=== PATIENT | female | born 2000 | race African-American/Black ===

== ENCOUNTER 2025-06-29 09:24 | Emergency (ER) | payer BC, SELFPAY ==
--- NOTE | ~2025-06-29 | XR_ITS ---
[id number] 06/29/2025 10:10 Indication: Radiculopathy Procedure: 5 views cervical spine Comparison: No prior studies for comparison. Findings: Straightening of cervical lordosis. Vertebral body and disc heights are preserved. No preve rtebral soft tissue abnormality. No fracture, subluxation or dislocation. No significant soft tissue abnormality. No foreign bodies. Odontoid process is normal. Impression: 1: No acute abnormality of the cervical spine. Reviewed, dictated and finalized at location B. Impression: 1: No acute abnormality of the cervical spine.
[2025-06-29 09:43] VITALS: BP 129/87; PULSE 82; RESP 18; TEMP 36.6; O2SAT 100
--- NOTE | 2025-06-29 09:43 | ED_ITS ---
HPI - General Adult General Chief complaint: Extremity Injury, Upper Stated complaint: R ARM NUMBNESS X2D Time Seen by Provider: 06/29/25 09:31 History of Present Illness HPI narrative: Patient is a 24-year-old female who presents ER with tingling to the fingertips of her right arm. Began yesterday and worsened today. She is just given to a baby in the last 10 days. She has no known trauma. No wrist pain at this time. She is pumping breast milk. Pain improves with ibuprofen. No complications with her . Related Data Allergies Allergy/AdvReac Type Severity Reaction Status Date / Time No Known Allergies Allergy Verified 06/29/25 09:25 Review of Systems Review of Systems: All systems reviewed & are unremarkable except as noted in HPI and below Constitutional: Constitutional: Reports no additional constitutional complaints Musculoskeletal: Musculoskeletal: Reports no additional musculoskeletal complaints Integumentary/Breasts: Skin/Breast: Reports system reviewed and no additional complaints, except as docu Neurologic: Reports system reviewed and no additional complaints, except as documented PMFSH Past Medical History Medical History (Updated 06/29/25 @ 18:10 by Keny Hernandez MD) Healthy female adult Surgical History Surgical History (Updated 06/29/25 @ 18:10 by Keny Hernandez MD) No pertinent past surgical history Exam Narrative: GENERAL: Well-appearing, well-nourished, and in no acute distress. HEAD: Normocephalic, atraumatic. ENT: Mucous membranes moist. NECK: Supple. Tenderness to the right paraspinal musculature of the trapezius that reproduces her discomfort in her arm and fingers. CHEST: Clear to auscultation. No respiratory distress. HEART: Regular rate and rhythm. Normal peripheral pulses. EXTREMITIES: Normal range of motion. No edema. Negative carpal tunnel compression test on the right side. SKIN: Warm, dry, no rash. NEURO: No focal deficits. Alert and oriented x3. PSYCH: Normal mood and affect. Course Course Emergency Course: Cervical radiculopathy. Discussed use of NSAIDs. Likely positional from holding her baby and attempting breast-feeding Vital Signs Vital signs: Vital Signs Temperature 97.8 F 06/29/25 09:43 Pulse Rate 82 06/29/25 09:43 Respiratory Rate 18 06/29/25 09:43 Blood Pressure 129/87 06/29/25 09:43 Pulse Oximetry 100 06/29/25 09:43 Oxygen Delivery Room Air 06/29/25 09:43 Temperature 97.8 F 06/29/25 09:43 Pulse Rate 82 06/29/25 09:43 Respiratory Rate 18 06/29/25 09:43 Blood Pressure 129/87 06/29/25 09:43 Pulse Oximetry 100 06/29/25 09:43 Oxygen Delivery Room Air 06/29/25 09:43 Medical Decision Making Vital Signs Vital Signs: Vital Signs Temperature 97.8 F 06/29/25 09:43 Pulse Rate 82 06/29/25 09:43 Respiratory Rate 18 06/29/25 09:43 Blood Pressure 129/87 06/29/25 09:43 Pulse Oximetry 100 06/29/25 09:43 Oxygen Delivery Room Air 06/29/25 09:43 Temperature 97.8 F 06/29/25 09:43 Pulse Rate 82 06/29/25 09:43 Respiratory Rate 18 06/29/25 09:43 Blood Pressure 129/87 06/29/25 09:43 Pulse Oximetry 100 06/29/25 09:43 Oxygen Delivery Room Air 06/29/25 09:43 Imaging Data Radiologist's impression: ITS Impressions Cervical Spine X-Ray 06/29/25 10:17 Impression: 1: No acute abnormality of the cervical spine. Discharge Plan Discharge Clinical Impression: Cervical radiculopathy Patient Disposition: Home Condition: Stable Instructions: Cervical Radiculopathy (ED) Additional Instructions: Follow-up with your primary care doctor for further treatment evaluation. Your having a pinched nerve related to inflammation in your neck. Patient Language: Tuval[place] Prescriptions: New ibuprofen 600 mg tablet 600 mg PO TID Qty: 20 0RF Follow-up/Referrals: PHYSICIAN NOT ON STAFF,NONSTAFF [Non-Staff] - 1 Week
[2025-06-29] MEDS: IBUPROFEN 600 MG TABLET PO (10:50)
--- OUTSIDE RECORDS SUMMARY | 2025-06-29 11:08 | XMS_ITS | Clinical Summary ---
Author Organization [facility] Address [address] [place] [address] Care Team Providers Care Detective Name Role Phone None, Provider MD Primary Care Provider Unavaila ble Allergies No known active allergies Medications Vit-DSS-Fe Fum-FA (SE- 19) 29-1 MG Tab 4 Active acetaminophen (TYLENOL) 500 MG tablet Take 2 tablets (1,000 mg total) by mouth every 6 (six) hours as needed for Pain. 30 tablet 5 06/30/20 25 Active ibuprofen (MOTRIN) 600 MG tablet Take 1 tablet (600 mg total) by mouth every 6 (six) hours as needed. 40 tablet 5 06/30/20 25 Active valACYclovir (VALTREX) 500 MG tablet Take 1 tablet (500 mg total) by mouth every 12 (twelve) hours. 06/20/20 25 Discontinu ed(Stop Taking at Discharge) Active Problems Problem Noted Date Diagnosed Date ([facility]) 06/17/2025 Encounters Date Type Department Care Team Description 06/28/2025 Results Follow-Up [facility] [place] [address] Jyothi Huerta MD Pathology-Placenta 06/20/2025 Travel 06/18/2025 12:25 PM CDT Anesthesia Event [facility] [place] [address] Alejandro Cosme CRNA 06/17/2025 7:17 PM CDT - 06/20/2025 2:45 PM CDT Hospital Encounter [facility] [place] [address] Jyothi Huerta MD Cunningham, Mina Marie, MD (MIOL) Discharge Disposition: Home or Self Care (Routine Discharge) 06/17/2025 Travel from Last 3 Months Social History Tobacco Use Types Packs/Day Years Used Date Smoking Tobacco: Never Smokeless Tobacco: Never Tobacco Cessation:Counseling Given: Not Answered Alcohol Use Standard Drinks/Week Comments Never 0 (1 standard drink = 0.6 oz pur e alcohol) [id number] Health Literacy Answer Date Recor ded How often do you need to hav e someone help you when you read instructions, pamphlets, or other written material from your doctor or pharmacy? Never 06/17/2025 [facility] Utilities Answer Date Recorded In the past 12 months has [facility] [employer], or water [employer] threatened to shut off services in your home? No 06/17/2025 Humiliation, Afraid, Rape, and Kick questionnair e Answer Date Recorded Within the last year, have y ou been afraid of your partner or ex-partner? No 06/17/2025 Within the last year, have y ou been humiliated or emotionally abused in other ways by your partner or ex-partner? No Within the last year, have y ou been kicked, hit, slapped, or otherwise physically hurt by your partner or ex-partner? No 06/17/2025 Within the last year, have y ou been raped or forced to have any kind of sexual activity by your partner or ex-partner? No 06/17/2025 Social Connection and Isolat ion Panel [NHANES] Answer Date Recorded In a typical week, how many times do you talk on the phone with family, friends, or neighbors? More than three times a week 06/17/2025 How often do you get togethe r with friends or relatives? More than three times a week 06/17/2025 How often do you attend [facility] or sabianist services? More than 4 times per year 06/17/2025 Do you belong to any clubs o r organizations such as mormonism groups, unions, fraternal or athletic groups, or school groups? No 06/17/2025 How often do you attend meet ings of the clubs or organizations you belong to? More than 4 times per year 06/17/2025 Are you , , di vorced, , never , or living with a partner? Never 06/17/2025 AUDIT-C Answer Date Recorded Q1: How often do you have a drink containing alcohol? Never 06/17/2025 Q2: How many drinks containi ng alcohol do you have on a typical day when you are drinking? Patient does not drink Q3: How often do you have si x or more drinks on one occasion? Never 06/17/2025 Overall Financial Resource Strain (CARDIA) Answe r Date Recorded How hard is it for you to pa y for the very basics like food, housing, medical care, and heating? Not hard at all 06/17/2025 PHQ-2 Answer Date Recorded Patient Health Questionnaire-2 Score 0 06/17/2025 [facility] - Occupational Stress Questionnaire Answer Date Recorded Do you feel stress - tense, restless, nervous, or anxious, or unable to sleep at night because your mind is troubled all the time - these days? Not at all 06/17/2025 Exercise Vital Sign Answer Date Recorde d On average, how many days pe r week do you engage in moderate to strenuous exercise (like a brisk walk)? 2 days 06/17/2025 On average, how many minutes do you engage in exercise at this level? 10 min 06/17/2025 Hunger Vital Sign Answer Date Recorded Within the past 12 months, y ou worried that your food would run out before you got the money to buy more. Never true 06/17/20 25 Within the past 12 months, t he food you bought just didn't last and you didn't have money to get more. Never true 06/17/2025 PRAPARE - Transportation Answer Date Re corded In the past 12 months, has l ack of transportation kept you from medical appointments or from getting medications? No 05/30 In the past 12 months, has l ack of transportation kept you from meetings, work, or from getting things needed for daily living? No 06/17/2025 Housing Stability Vital Sign Answer Guy e Recorded In the last 12 months, was t here a time when you were not able to pay the mortgage or rent on time? No 06/17/2025 In the past 12 months, how m any times have you moved where you were living? 1 06/17/2025 At any time in the past 12 m [facility], were you homeless or living in a senior care (including now)? No 06/17/2025 Depression Answer Date Recor ded Last EPDS Total Score 1 06/20/2025 Last EPDS Self Harm Result Hardly ever 06/20 Comments No Sex and Gender Information Value Date Recorded Sex Assigned at Female 06/17/2025 7:40 PM CDT Legal Sex Female 10:25 AM CDT Gender Identity Female 06/17/2025 7:40 PM CDT Sexual Orientation Straight 06/17/2025 7: 40 PM CDT Last Filed Vital Signs Vital Sign Reading Time Taken Comments Blood Pressure 117/75 06/20/2025 9:15 AM CDT Pulse 74 06/20/2025 9:15 AM CDT Temperature 36.7 C (98.1 F) 06/20/2025 9:15 AM CDT Respiratory Rate 18 06/20/2025 9:15 AM CDT Oxygen Saturation 98% 06/20/2025 9:15 AM CDT Inhaled Oxygen Concentration - - Weight 79.4 kg (175 lb) 06/17/2025 7:31 PM CDT Height 162.6 cm (5' 4) 06/17/2025 7:31 PM CDT Body Mass Index 30.04 06/17/2025 7:31 PM CDT Plan of Treatment Upcoming Encounters Date Type Department Care Team (Late st Contact Info) Description 07/06/2025 8:[address] [facility] [place], [place] [id number] Lexa Ochoa MD [facility] [address] [place], [place] [id number] Health Maintenance Due Date Last Done Comments Cervical Cancer Screening Pap Smear (Age 21 to 29) Every 3 Years 1999 Cervical Cancer Screening 1999 Annual Physical 2002 COVID-19 Vaccine (2 season) 2024 06/26/2023 DTaP, Tdap and Td Vaccines (8 - Td or Tdap) 04/18/2035 04/18/2025, 07/08/2012, 04/15/2005, Additional history exists Pneumococcal Vaccine: Pediatrics (0 to 5 Years) and At-Risk Patients (6 to 49 Years) Aged Out 02/12/2001, 12/07/2000, 09/16/2000 No longer eligible based on patient's age to complete this topic Hepatitis B Vaccines Completed 03/02/2008, 1999, 1999, Additional history exists HPV Vaccines Completed 12/20/2010, 07/01/2010 Meningococcal Vaccine Completed 09/23/2016, 012 Hepatitis C Completed 06/17/2025 Meningococcal B Vaccine Aged Out No l onger eligible based on patient's age to complete this topic RSV Immunizations Under 20 Months Aged Out No longer eligible based on patient's age to complete this topic Procedures Procedure Name Priority Date/Time Associated Diagnosis Comments RHOGAM Routine 06/19/2025 6:1 0 AM CDT COMPREHENSIVE METABOLIC PANEL Routine 06/19/2025 6:10 AM CDT CBC W/DIFF AUTOMATED Routine 06/19/2025 6:10 AM CDT LABOR EPIDURAL Routine 06/18/2025 12:55 PM CDT PATHOLOGY Routine 06/18/2025 12:00 AM CDT TYPE & SCREEN Routine 06/17/2025 9:06 PM CDT DRUG SCREEN RAPID STAT 06/17/2025 8:5 5 PM CDT HC URINALYSIS AUTO W/O MICRO STAT 06/17/2025 8:55 PM CDT SYPHILIS AB (DIAGNOSTIC) WITH CASCADING REFLEX Routine 06/17/2025 8:36 PM CDT HEPATITIS C ANTIBODY Today 06/17/2025 8:36 PM CDT HIV 1 ANTIGEN(S), WITH HIV-1 AND HIV-2 ANTIBODIES Routine 06/17/2025 8:10 PM CDT CBC W/DIFF AUTOMATED STAT 06/17/2025 8:10 PM CDT CULTURE, GRP B STREP Routine 06/08/2025 HIV 1 ANTIGEN(S), WITH HIV-1 AND HIV-2 ANTIBODIES Routine 04/18/2025 CBC W/DIFF AUTOMATED Routine 04/18/2025 SYPHILIS AB (DIAGNOSTIC) WITH CASCADING REFLEX Routine 04/18/2025 from Last 3 Months Results * RHOGAM (06/19/2025 6:10 AM CDT) SCREEN NEGATIVE 06/19/2025 8:11 AM CDT [facility] BB COMMENT NEGATIVE SCREEN INDICATES NO FURTHER TESTING IS NECESSARY. ONE VIAL OF RHOGAM MAY BE GIVEN IF MOTHER IS RH NEGATIVE AND BABY IS RH POSITIVE. 06/19/2025 8:11 AM CDT [facility] 06/19/2025 6:10 AM CDT us Skyler Valenzuela DO BLOOD BANK PRODUCT ORDERABLES Fi nal Result [facility] [address] [place] [address], [place] [phone] * (ABNORMAL) Comprehensive Metabolic Panel (06/19/2025 6:10 AM CDT) [facility] GLUCOSE 121(H) 70 - 99 MG/DL 06/19/2025 7:00 AM CDT [facility] BUN 5(L) 7 - 18 MG/DL 06/19/2025 7:00 AM CDT [facility] CREATININE S/P/B 0.62 0.55 - 1.02 MG/DL 06/19/2025 7:00 AM CDT [facility] SODIUM S/P/B 138 136 - 145 MMOL/L 06/19/2025 7:00 AM T [facility] POTASSIUM S/P/B 3.4(L) 3.5 - 5.1 MMOL/L 06/19/2025 7:00 AM T [facility] CHLORIDE S/P/B 109 97 - 115 MMOL/L 06/19/2025 7:00 AM T [facility] CO2 23.3 21 - 32 MMOL/L 06/19/2025 7:00 AM T [facility] CALCIUM S/P/B 9.2 8.5 - 10.1 MG/DL 06/19/2025 7:00 AM T [facility] BILIRUBIN TOTAL S/P/B 0.5 0.2 - 1.2 MG/DL 06/19/2025 7:00 AM T [facility] Comment: THIS ASSAY IS NOT RECOMMENDED FOR PATIENTS UNDERGOING TREATMENT WITH ELTROMBOPAG DUE TO THE POTENTIAL FOR FALSELY ELEVATED RESULTS. TOTAL PROTEIN S/P/B 6.1(L) 6.4 - 8.2 G/DL 06/19/2025 7:00 AM T [facility] ALBUMIN S/P/B 2.4(L) 3.4 - 5.0 G/DL 06/19/2025 7:00 AM T [facility] AST 15 15 - 37 U/L 06/19/2025 7:00 AM CDT [facility] ALT 16 14 - 55 U/L 06/19/2025 7:00 AM CDT [facility] ALKALINE PHOSPHATASE S/P/B 122 50 - 136 U/L 06/19/2025 7:00 AM CDT [facility] ANION GAP 5.7 2 - 10 MMOL/L 06/19/2025 7:00 AM CDT [facility] BUN CREATININE RATIO 8.0 6 - 26 06/19/2025 7:00 AM CDT [facility] A/G RATIO 0.6(L) 1.0 - 2.0 RATIO 06/19/2025 7:00 AM CDT [facility] GFR ESTIMATE >90 >90 ML/MIN/1.7 3 M2 06/19/2025 7:00 AM CDT [facility] Comment: NOTE: eGFR is not calculated for patients <18 years of age or gender unknown. This is an estimated GFR calculation using the new CKD EPI creatinine equation without race and so does not require a correction factor for race. This estimated GFR should not be used for calculating drug doses. 06/19/2025 6:10 AM CDT Skyler Valenzuela DO LABORATORY Final Result [facility] [address] [place] [address], [place] [phone] * (ABNORMAL) CBC W/DIFF AUTOMATED (06/19/2025 6:10 AM CDT) Only the most recent of3 resultswithin the time period is included. WBC 11.01(H) 4.5 - 11.0 x10'3/uL 06/19/2025 6:46 AM CDT [facility] RBC 3.24(L) 4.20 - 5.40 x10'6/uL 06/19/2025 6:46 AM CDT [facility] HGB 11.2(L) 12.0 - 16.0 G/DL 06/19/2025 6:46 AM CDT [facility] HCT 31.2(L) 38.0 - 48.0 % 06/19/2025 6:46 AM CDT [facility] MCV 96.3 81.0 - 99.0 FL 06/19/2025 6:46 AM CDT [facility] MCH 34.6(H) 27.0 - 31.0 PG 06/19/2025 6:46 AM CDT [facility] MCHC 35.9 32.0 - 36.0 G/DL 06/19/2025 6:46 AM CDT [facility] RDW 12.4 11.5 - 14.5 % 06/19/2025 6:46 AM CDT [facility] PLT 214 130 - 400 x10'3/uL 06/19/2025 6:46 AM CDT [facility] MPV 9.9 9.3 - 12.2 FL 06/19/2025 6:46 AM CDT [facility] DIFFERENTIAL TYPE AUTOMATED DIFFERENTIAL 06/19/2025 6:46 AM CDT [facility] NEUTROPHILS % 77.6 % 06/19/2025 6:46 AM CDT [facility] LYMPHOCYTES % 10.9 % 06/19/2025 6:46 AM CDT [facility] MONOCYTES % 10.3 % 06/19/2025 6:46 AM CDT [facility] EOSINOPHILS 0.5 % 06/19/2025 6:46 AM CDT [facility] BASOPHILS 0.2 % 06/19/2025 6:46 AM CDT [facility] IMMATURE GRANS % 0.5 % 06/19/20 6:46 AM CDT [facility] ABS. NEUTROPHILS 8.54(H) 1.80 - 7.70 x10'3/uL 06/19/2025 6:46 AM CDT [facility] ABS. LYMPHOCYTES 1.20 1.00 - 4.80 x10'3/uL 06/19/2025 6:46 AM CDT [facility] ABS. MONOCYTES 1.13(H) 0.24 - 0.86 x10'3/uL 06/19/2025 6:46 AM CDT [facility] ABS. EOSINOPHILS 0.06 0.04 - 0.36 x10'3/uL 06/19/2025 6:46 AM CDT [facility] ABS. BASOPHILS 0.02 0.01 - 0.08 x10'3/uL 06/19/2025 6:46 AM CDT [facility] ABS. IMMATURE GRANULOCYTES 0.06 0.00 - 0.49 x10'3/uL 06/19/2025 6:46 AM CDT [facility] 06/19/2025 6:10 AM CDT Skyler Valenzuela DO LABORATORY Final Result [facility] [address] [place] [address], * Labor Epidural (06/18/2025 12:55 PM CDT) Narrative Alejandro Cosme CRNA - 06/18/2025 12:55 PM CDT Alejandro Cosme CRNA 06/18/2025 12:56 PM Epidural: Procedure Start: 06/18/2025 12:34 PM Procedure Stop: 06/18/2025 12:46 PM Patient location during procedure: OB Reason for block: procedure for pain and labor epidural Preanesthetic Checklist Completed: patient identified, consent, pre-op evaluation, timeout performed, IV checked, risks and benefits discussed and monitors and equipment checked Procedure Information: Patient position: sitting Prep: site prepped and draped and chlorhexidine Patient monitoring: continuous pulse oximetry, heart rate and non-invasive blood pressure Approach: midline Location: L3-L4 Injection technique: MAGALI saline Placement Location: lumbar Ultrasound-guided Placement: No Needle and Catheter: MRI Compatible: B Mandujano Perifix tray Ref # [id number] Needle type: Tuohy Needle gauge: 17 G Needle length: 3.5 in Needle insertion depth: 6 cm Catheter type: side hole Catheter size: 19 G Catheter at skin depth: 11 cm Test dose: negative and lidocaine 1.5% with epinephrine 1-to-200,000 Needle attempts: 1 Assessment Sensory level: T8 Additional Notes Epidural placed as above, pt tolerated well. Perifix FX Continuous Epidural Anesthesia Tray Ref # [id number] Product code [id number] Expiration 2025-12-30 Alejandro Cosme VAN LOADER [place] ANESTHESIA Final Result * Pathology-Placenta (06/18/2025 12:00 AM CDT) PATHOLOGY [facility] Department of Laboratory Medicine [address] [place] [phone] , extension [id number] Pathology Report Surgical Pathology Report Name: RE PEÑA Specimen #: [id number] Age: 9 2000 (Age: 24) Location: [facility] Sex: F Procedure Date: 06/18/2025 Hospital #: [id number] Date Received: 06/20/2025 Date Reported: 06/21/2025 Provider: JYOTHI HUERTA MD Source: Placenta Clinical History: G1, P1 at 37-1/7-week with intrauterine growth restriction. FINAL DIAGNOSIS: Placenta, third trimester, delivery: - Placental disc (519 g) with no significant villous abnormalities. - membranes with mild chronic chorioamnionitis. - Three-vessel umbilical cord with velamentous insertion and acute phlebitis. Gross Description: Received in formalin, labeled with a patient label and as placenta is a placenta with attached membranes and umbilical cord. The membranes are semitranslucent and exhibit a marginal insertion. The umbilical cord is 17 cm in length with a diameter of 1.2 cm. It exhibits a velamentous insertion 5 cm from the edge of the disc. Several vessels running through the membranes. They appear intact. The cord does not exhibit any areas of stricture or true knots. Sections of the cord reveal 3 vessels. The disc is 519 g and 16 x 15 x 2.5 cm. The surface is bluegray with prominent vasculature. The maternal surface is slightly disrupted but appears complete. Sections of the disc reveal a dark red-brown parenchyma with no discrete lesions noted grossly. Job Developer tissue is submitted as follows: 1 membranes 2 umbilical cord 3 parenchyma to include maternal surface 4 parenchyma to include surface. Gross examination (when applicable) was performed at [facility], [address] [place] [address]. This case was interpreted and signed out at [facility], [address] [place] [address]. Electronically Signed Out Bobbi Ramos M.D. [facility] 06/18/2025 06/20/2025 7:2 1 AM CDT Comment:Placenta us Jyothi Huerta MD PATHOLOGY/CYTOLOGY ORD ERABLES Final Result [facility] [address] [place] [address], [id number] * TYPE & SCREEN (06/17/2025 9:06 PM CDT) ABO/RH B NEGATIVE 06/17/2025 11:37 PM CDT [facility] ANTIBODY SCREEN POSITIVE 06/17/2025 11:37 PM CDT [facility] SAMPLE EXPIRATION 06/20/2025,2359 06/17/2025 11:37 PM CDT [facility] ANTIBODY ID NO ALLOANTIBODIES DETECTED 06/17/2025 11:37 PM CDT [facility] BB COMMENT ANTI-D MOST LIKELY DUE TO RECENT RH IMMUNE GLOBULIN INJECTION. PATIENT RECIEVED RHOGAM ON 04/18/25 06/17/2025 11:37 PM CDT [facility] 06/17/2025 9:06 PM CDT us Jyothi Huerta MD BLOOD BANK TEST ORDERA BLES Final Result [facility] [address] [place] [address], * DRUG SCREEN RAPID (06/17/2025 8:55 PM CDT) AMPHETAMINE (U) NEGATIVE NEGATIVE 9:17 PM CDT [facility] BARBITURATES SCREEN (U) NEGATIVE NEGATIVE 06/17/2025 9:17 PM CDT [facility] BENZODIAZEPINES SCREEN (U) NEGATIVE NEGATIVE 06/17/2025 9:17 PM CDT [facility] CANNABINOIDS SCREEN (U) NEGATIVE NEGATIVE 06/17/2025 9:17 PM CDT [facility] COCAINE METABOLITES (U) NEGATIVE NEGATIVE 06/17/2025 9:17 PM CDT [facility] METHADONE (U) NEGATIVE NEGATIVE 06/17/2025 9:17 PM CDT [facility] OPIATE SCREEN (U) NEGATIVE NEGATIVE 025 9:17 PM CDT [facility] PHENCYCLIDINE PCP (U) NEGATIVE NEGATIVE 06/17/2025 9:17 PM CDT [facility] Comment: NOTE: RESULTS OF THIS DRUG SCREEN SHOULD BE USED FOR MEDICAL PURPOSES ONLY AND NOT FOR LEGAL OR EMPLOYMENT PURPOSES. POSITIVE RESULTS ARE NOT CONFIRMED. MEDICATIONS CONTAINING EPHEDRINE MAY CAUSE FALSE POSITIVE AMPHETAMINE CALL [phone], LAB, TO REQUEST CONFIRMATION TESTING. IF CREATININE IS <40 mg/dL. RECOLLECTION IS SUGGESTED. AMPHETAMINE- 500 NG/ML BARBITURATE- 200 NG/ML BENZODIAZEPINES- 200 NG/ML THC- 50 NG/ML COCAINE- 150 NG/ML METHADONE- 300 NG/ML OPIATE- 300 MG/ML PCP- 25 NG/ML CREATININE (U) 101.0 28 - 217 MG/DL 06/17/2025 9:17 PM CDT [facility] URINE SPECIMEN / Unknown 06/17/2025 8:55 PM CDT us Suzette Aponte DO URINE ORDERABLES Fi nal Result [facility] [address] [place] [address], * (ABNORMAL) URINALYSIS (06/17/2025 8:55 PM CDT) SPECIMEN TYPE URINE CLEAN CATCH 06/17/2025 8:59 PM CDT [facility] COLOR (U) LIGHT YELLOW 06/17/2025 9:19 PM CDT [facility] TRANSPARENCY TURBID 06/17/2025 9:19 PM CDT [facility] SPECIFIC GRAVITY (U) 1.015 1.001 - 1.030 06/17/2025 9:19 PM CDT [facility] U PH 6.5 5.0 - 9.0 06/17/2025 9:19 PM CDT [facility] LEUKOCYTES (U) 250(A) NEGATIVE 06/17/2025 9:19 PM CDT [facility] NITRITES NEGATIVE NEGATIVE 06/17/2025 9:19 PM CDT [facility] PROTEIN RANDOM (U) NEGATIVE <30 MG/DL 06/17/2025 9:19 PM CDT [facility] GLUCOSE (U) NORMAL NORMAL MG/DL 06/17/2025 9:19 PM CDT [facility] KETONES MG/DL (U) 20(A) NEGATIVE MG/DL 06/17/2025 9:19 PM CDT [facility] UROBILINOGEN NORMAL NORMAL MG/DL 06/17/2025 9:19 PM CDT [facility] BILIRUBIN (U) NEGATIVE NEGATIVE MG/DL 06/17/2025 9:19 PM CDT [facility] BLOOD (U) NEGATIVE NEGATIVE 06/17/2025 9:19 PM CDT [facility] MUCUS RARE /LPF 06/17/2025 9:19 PM CDT [facility] WBC/HPF 4 <6 /HPF 06/17/2025 9:19 PM CDT [facility] RBC/HPF 2 <6 /HPF 06/17/2025 9:19 PM CDT [facility] SQUAMOUS EPITHELIALS MODERATE /HPF 06/17/2025 9:19 PM CDT [facility] URINE SPECIMEN OBTAINED BY CLEAN CATCH PROCEDURE / Unknown 06/17/2025 8:55 PM CDT us Suzette Aponte DO URINE ORDERABLES Fi nal Result [facility] [address] [place] [address], * SYPHILIS IGG/IGM AB (06/17/2025 8:36 PM CDT) Only the most recent of2 resultswithin the time period is included. SYPHILIS IGG IGM AB NON-REACTI VE NON-REACTI VE 06/17/2025 10:03 PM CDT [facility] Comment: No serologic evidence of syphilis. No follow-up necessary unless clinically indicated. 06/17/2025 8:36 PM CDT Suzette [facility] Fin al Result Performing Organization Address City/[facility]/ZIP Co de Phone Number [facility] [address] [place] [address], [place] [phone] * HEPATITIS C ANTIBODY (06/17/2025 8:36 PM CDT) HEPATITIS C AB NON-REACTI VE NON-REACTI VE 06/17/2025 10:12 PM CDT [facility] 06/17/2025 8:36 PM CDT Suzette [facility] LABORATORY Fin al Result Performing Organization Address [facility] de Phone Number [facility] [address] [place] [address], [place] [phone] * HIV 1 ANTIGEN(S), WITH HIV-1 AND HIV-2 ANTIBODIES (06/17/2025 8:10 PM CDT) Only the most recent of2 resultswithin the time period is included. HIV 1/2 AB+ HIV1 P24 AG NON-REACTI VE NON-REACTI VE 06/17/2025 10:19 PM CDT [facility] 06/17/2025 8:10 PM CDT [facility] LABORATORY Fin al Result Performing Organization Address City/[facility] Co de Phone Number [facility] [address] [place] [address], [place] [phone] * CULTURE, GRP B STREP (06/08/2025) CULTURE GBS Negative us Default History Genericprovider MICROBIOLOGY - G ENERAL ORDERABLES Final Result from Last 3 Months Insurance [facility] Advance Directives * Full Code (Latest Code Status on File) Date Activated Date Inactivated Comments 06/17/2025 8:37 PM 06/20/2025 4:53 PM Care Teams Detective Relationship Specialty Start Date End Date None, Provider, PCP - General UNKNOWN PHYSICIAN SPECIALTY 06/17/25
--- OUTSIDE RECORDS SUMMARY | 2025-06-29 11:08 | XMS_ITS | Clinical Summary ---
Author Organization [facility] Address [address] [place] [address] Care Team Providers Care Residential Mortgage Manager Name Role Phone Lorraine Peña MD Primary Care Provider [phone] Source Comments PLEASE NOTE, if this patient is a minor, it may be UNLAWFUL to discuss sensitive information that is contained in these records (such as FAMILY PLANNING, MENTAL HEALTH or SUBSTANCE ABUSE) with the minor patient's parent or other person without the patient's specific authorization.[facility] Allergies No known active allergies Medications metroNIDAZOLE (METROGEL) 0.75 % vaginal gelIndications: Subacute vaginitis Place 1 Applicator vaginally 2 (two) times daily Start after period has completely STOPPED. Use medicated betadine douche first. 70 g 2 Active fluconazole (DIFLUCAN) 150 mg tabletIndicatio ns:Subacute vaginitis Take first tab on the day you start your vaginal antibiotic and the second pill 72 hours later. 2 Tablet 2 Active Active Problems No known active problems Family History Medical History Relation Name Comments No Known Problems Father No Known Problems Mother Relation Name Status Comments Father Alive Mother Alive Social History Tobacco Use Types Packs/Day Years Used Date Smoking Tobacco: Never Smokeless Tobacco: Never Tobacco Cessation:Counseling Given: Yes Alcohol Use Standard Drinks/Week Comments Never 0 (1 standard drink = 0.6 oz pur e alcohol) Social Connections Answer Date Recorded Connectedness 0 04/24/2022 Financial Resource Strain Answer Date R ecorded Financial Resource Strain 0 2021 Stress Answer Date Recorded Stress 0 04/24/2022 Physical Activity Answer Date Recorded Physical Activity 0 04/24/2022 Food Insecurity Answer Date Recorded Food 0 04/24/2022 Transportation Needs Answer Date Record ed Transportation 0 04/24/2022 Housing Stability Answer Date Recorded Housing 0 04/24/2022 Safety and Environment Answer Date Josue rded Safety 0 04/24/2022 Utilities Answer Date Recorded Utilities 0 04/24/2022 Employment Answer Date Recorded Stress 0 04/24/2022 Comments No Sex and Gender Information Value Date Recorded Sex Assigned at Female 04/24/2022 12:49 PM PDT Legal Sex Female 10:54 AM PDT Gender Identity Female 04/24/2022 12:49 PM PDT Sexual Orientation Straight 04/24/2022 12 :49 PM PDT Last Filed Vital Signs Vital Sign Reading Time Taken Comments Blood Pressure 116/84 06/04/2022 4:12 PM CDT Pulse 87 06/04/2022 4:12 PM CDT Temperature 37.2 C (99 F) 06/04/2022 4:12 PM CDT Respiratory Rate 20 06/04/2022 4:12 PM CDT Oxygen Saturation 98% 06/04/2022 4:12 PM CDT Inhaled Oxygen Concentration - - Weight 62.7 kg (138 lb 3.2 oz) 06/04/2022 4:12 P M CDT Height 162.6 cm (5' 4) 06/04/2022 4:12 PM CDT Body Mass Index 23.72 06/04/2022 4:12 PM CDT Plan of Treatment Not on file Care Teams Residential Mortgage Manager Relationship Specialty Start Date End Date Lorraine Peña MD [address] [place] [address] [phone] PCP - General Internal Medicine 11/20/22
--- OUTSIDE RECORDS SUMMARY | 2025-06-29 11:08 | XMS_ITS | Clinical Summary ---
Author Organization [facility] Address [address] [place] [address] Care Team Providers Care It Business Process Architect Name Role Phone No, Physician Primary Care Provider [phone] Allergies No known active allergies Medications famotidine (PEPCID) 40 mg tabletIndication s:gastroesophage al reflux disease Take 1 tablet (40 mg total) by mouth 2 (two) times a day 60 tablet 11 01/13/2024 Active Social History Tobacco Use Types Packs/Day Years Used Date Smoking Tobacco: Never Assessed Personal Safety Answer Date Recorded Have you ever been in or are you currently in a harmful physical or emotional relationship or is someone making you feel afraid or unsafe? 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 Gender Identity Not on file Sexual Orientation Not on file Obstetrics History Para Term AB IAB SAB Ectopic Multiple Livin g Live Births 1 Date Outcome GA Total Labor Labor/2nd/3rd Weight Sex Type Anes PTL Kaylah A1 A5 Name Clin Current Last Filed Vital Signs Vital Sign Reading Time Taken Comments Blood Pressure 120/74 02/24/2025 9:17 PM CDT Pulse 88 02/24/2025 9:17 PM CDT Temperature 36.3 C (97.4 F) 02/24/2025 9:17 PM CDT Respiratory Rate 18 02/24/2025 9:17 PM CDT Oxygen Saturation 100% 02/24/2025 9:17 PM CDT Inhaled Oxygen Concentration - - Weight 63.5 kg (140 lb) 02/24/2025 9:17 PM CDT Height 165.1 cm (5' 5) 02/24/2025 9:17 PM CDT Body Mass Index 23.3 02/24/2025 9:17 PM CDT Plan of Treatment Health Maintenance Due Date Last Done Comments Cervical Cancer Screening 1999 Depression Screening 1999 Hepatitis C Screening 1999 Regular Well Visit/Exam 18-64 2017 DTaP/Tdap/Td Vaccine (7 - Td or Tdap) 07/08/2022 07/08/2012, 04/15/2005, 09/16/2000, Additional history exists Influenza Vaccine (#1) 2025 Pneumococcal vaccine <65 Completed 001, 12/07/2000, 09/16/2000 Hepatitis B Screening Completed 03/02/2008 , 1999, 1999, Additional history exists Varicella Vaccines Completed 07/18/2008, 09/16/2000 HPV Vaccines Completed 12/20/2010, 07/01/2010 Care Teams It Business Process Architect Relationship Specialty Start Date End Date No, Physician PCP - General 01/13/24
--- OUTSIDE RECORDS SUMMARY | 2025-06-29 11:08 | XMS_ITS | Referral Summary ---
Author Organization 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
--- OUTSIDE RECORDS SUMMARY | 2025-06-29 11:08 | XMS_ITS | Encounter Summary ---
Author Organization [facility] Address [facility] [place] [address] Care Team Providers Care Wildlife Rehabilitator Name Role Phone None, Provider Primary Care Provider Gage garcia Encounter Details Date Type Department Care Team (Late st Contact Info) Description 06/28/2025 Results Follow-Up [facility] Labor & Delivery [address] [place] [id number] Corina Huerta MD [address] [facility] [place] [address] [place] [address] Pathology-Placenta Social History Tobacco Use Types Packs/Day Years Used Date Smoking Tobacco: Never Smokeless Tobacco: Never Alcohol Use Standard Drinks/Week Comments Never 0 (1 standard drink = 0.6 oz pur e alcohol) B1300 Health Literacy Answer Date Recor ded How often do you need to hav e someone help you when you read instructions, pamphlets, or other written material from your doctor or pharmacy? Never 06/17/2025 [facility] Utilities Answer Date Recorded In the past 12 months has e electric, gas, oil, or water company threatened to shut off services in your [...] week 06/17/2025 How often do you attend chur or methodist services? More than 4 times per year 06/17/2025 Do you belong to any clubs o r organizations such as latter-day groups, unions, fraternal or athletic groups, or [...] Recorded Patient Health Questionnaire-2 Score 0 06/17/2025 [facility] [place] [facility] Occupat ional Health - Occupational Stress [...] any time in the past 12 m [facility], were you homeless or living in a alf (including now)? No 06/17/2025 Depression Answer Date Recor ded Last EPDS Total Score 1 06/20/2025 Last EPDS Self Harm Result Hardly ever 06/20 Comments No Sex and Gender Information Value Date Recorded Sex Assigned at Female 06/17/2025 7:40 PM CDT Legal Sex Female 10:25 AM CDT Gender Identity Female 06/17/2025 7:40 PM CDT Sexual Orientation Straight 06/17/2025 7: 40 PM CDT documented as of this encounter Functional Status * Are you deaf or do you have serious difficulty hearing Answer Date of Assessment Author Status No 06/17/2025 7:46 PM CDT Laura Dillon RN Active * Are you blind or do you have serious difficulty seeing, even when wearing glasses? Answer Date of Assessment Author Status No 06/17/2025 7:46 PM CDT Laura Dillon RN Active * Do you have serious difficulty walking or climbing stairs? Answer Date of Assessment Author Status No 06/17/2025 7:46 PM CDT Laura Dillon RN Active * Do you have difficulty dressing or bathing? Answer Date of Assessment Author Status No 06/17/2025 7:46 PM CDT Laura Dillon RN Active * Because of a physical, mental, or emotional condition, do you have difficulty doing errands alone such as visiting a doctor's office or shopping? Answer Date of Assessment Author Status No 06/17/2025 7:46 PM CDT Laura Dillon RN Active documented as of this encounter Mental Status * Because of a physical, mental, or emotional condition, do you have serious difficulty concentrating, remembering, or making decisions? 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 documented in this encounter Plan of Treatment Upcoming Encounters Date Type Department Care Team (Late st Contact Info) Description 07/06/2025 8:00 AM CDT Appointment [facility] [address] Lexa Ochoa MD [address] [facility] [place] [address] documented as of this encounter Visit Diagnoses Not on filedocumented in this encounter Care Teams Wildlife Rehabilitator Relationship Specialty Start Date End Date None, Provider, PCP - General UNKNOWN PHYSICIAN SPECIALTY 06/17/25 documented as of this encounter
--- OUTSIDE RECORDS SUMMARY | 2025-06-29 11:08 | XMS_ITS | Clinical Summary ---
Author Organization [facility] Address [address] [facility] [place] [address] Care Team Providers Care Curb Setter Helper Name Role Phone Unknown, Provider Primary Care Provider Unavaila ble Source Comments [facility],non-owned Affiliates and Associated Physician Practices is amultiple site organization consisting of ambulatory clinics and hospital sitesin [place], [place], [place] and [place]. This disclosure is being madepursuant to the Care Everywhere program and may not contain all information available regarding this patient. Last updated 18.[facility] Allergies No known active allergies Encounters Date Type Department Care Team Description 06/16/2025 7:41 AM CDT - 06/16/2025 11:59 PM CDT Hospital Encounter [facility] [address] [place] [address] Salvatore Fontenot MD Discharge Disposition: Home or Self Care 06/13/2025 7:33 AM CDT - 06/13/2025 11:59 PM CDT Hospital Encounter [facility] [address] [place] [address] Rupa Ledezma MD Discharge Disposition: Home or Self Care 06/13/2025 7:30 AM CDT - 06/13/2025 7:32 AM CDT Hospital Encounter [facility] [address] [place] [address] Rupa Ledezma MD Discharge Disposition: Home or Self Care 06/09/2025 7:30 AM CDT - 06/09/2025 11:59 PM CDT Hospital Encounter [facility] [address] [place] [address] Salvatore Fontenot MD Discharge Disposition: Home or Self Care 04/25/2025 7:58 AM CDT - 04/25/2025 11:59 PM CDT Hospital Encounter [facility] [address] [place] [address] Salvtaore Fontenot MD Discharge Disposition: Home or Self Care from Last 3 Months Social History Tobacco Use Types Packs/Day Years Used Date Smoking Tobacco: Never Assessed Estimated Date of Delivery Comme nts Yes 07/08/2025 Based on Ultraso und Sex and Gender Information Value Date Recorded Sex Assigned at Not on file 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 Gender Identity Not on file Sexual Orientation Not on file Last Filed Vital Signs Vital Sign Reading Time Taken Comments Blood Pressure 114/57 06/16/2025 8:03 AM CDT Pulse 75 06/16/2025 8:03 AM CDT Temperature - - Respiratory Rate - - Oxygen Saturation - - Inhaled Oxygen Concentration - - Weight - - Height - - Body Mass Index - - Plan of Treatment Health Maintenance Due Date Last Done Comments HIV SCREENING 2014 HPV VACCINE (1 - 3-dose series) 2014 CHLAMYDIA/GONORRHEA SCREENING 2015 HEPATITIS C SCREENING 08/02/2017 DTAP/TDAP/TD VACCINES (1 - Tdap) 2018 HEPATITIS B VACCINE (1 of 3 - 19+ 3-dose series) 2018 PAP SMEAR 2020 COVID-19 VACCINE (2 - 2023-2 5 season) 2024 06/26/2023 DEPRESSION SCREENING 11/30/2024 OB-ONE HOUR GLUCOSE 04/01/2025 OB-RHOGAM INJECTION 04/15/2025 OB-GROUP B STREP SCREEN 06/03/2025 INFLUENZA VACCINE (#1) 2025 ZOSTER VACCINE (1 of 2) 2049 OB-TDAP CURRENT Completed 2024, 07/08/2012 HIB VACCINE Aged Out No longer eligi ble based on patient's age to complete this topic MENINGOCOCCAL (Group B) VACCINE SHARED DECISION-MAKING Aged Out No longer eligible based on patient's age to complete this topic MENINGOCOCCAL GROUPS A/C/Y/W VACCINE Aged Out No longer eligible b ased on patient's age to complete this topic PNEUMOCOCCAL VACCINE Aged Out No long er eligible based on patient's age to complete this topic Respiratory Syncytial Virus (RSV) Vaccine Pt: or over 60 yrs (No Doses Required) Completed Procedures Procedure Name Priority Date/Time Associated Diagnosis Comments BIOPHYSICAL PROFILE W NST Routine 06/13/2025 7:43 AM CDT 36 weeks gestation of (HCC) Poor growth affecting management of mother, antepartum, single or unspecified fetus (HCC) SONOGRAM - COMPLETE Routine 06/09/2025 8 :01 AM CDT Encounter for ultrasound (HCC) Primigravida, antepartum (HCC) Rh negative state in antepartum period, unspecified trimester (HCC) 35 weeks gestation of (HCC) Marginal insertion of umbilical cord affecting management of mother (HCC) SONOGRAM - COMPLETE Routine 04/25/2025 8 :15 AM CDT Encounter for ultrasound (HCC) Primigravida, antepartum (HCC) Rh negative state in antepartum period, unspecified trimester (HCC) 29 weeks gestation of (HCC) from Last 3 Months Results * Biophysical Profile w NST (06/13/2025 7:43 AM CDT) Linked Results Addendum ========= Coding changed/ corrected. Indication ======== Maternal care for known or suspected placental insufficiency Abnormal chromosomal and genetic finding on SMA Carrier screening of mother History ====== OB History 1. Para 0 Lab Tests Test Date Result NIPT Declined Maternal Assessment Physical Exam Height 163 cm, 5 ft 4 in. Weight 78 kg, 173 lb. Initial weight 59 kg, 130 lb. BMI 29.70 kg/m . Initial BMI 22.31 kg/m . Weight gain 20 kg, 43 lb Method ====== Transabdominal ultrasound examination. View: Sufficient ========= Downing . Number of fetuses: 1 Dating ====== Date Details Gest. age CINDY LMP 09/11/2024 39 w + 2 d 06/18/2025 Stated CINDY 36 w + 3 d 07/08/2025 Assigned dating based on ultrasound (AC, BPD, Femur, HC), selected on 01/30/2025 36 w + 3 d 07/08/2025 General Evaluation Cardiac activity present. FHR 140 bpm. Presentation: cephalic Placenta: Placental site: posterior Amniotic Fluid Assessment ==== Amount of AF: normal MVP 5.6 cm. MASSIEL 18.3 cm. Q1 5.6 cm, Q2 5.1 cm, Q3 3.8 cm, Q4 3.9 cm Biophysical Profile 2: breathing movements 2: Gross body movements 2: tone 2: Amniotic fluid volume NST: reactive 09/08 Biophysical profile score Non Stress Test NST interpretation: reactive. Baseline FHR 140 bpm. Baseline variability: moderate. Accelerations: present. Decelerations: absent Growth Overview Exam date GA BPD (mm) HC (mm) AC (mm) FL (mm) HL (mm) EFW (g) 01/30/2025 17w 2d 36.3 42% 138.2 36% 120 63% 22.5 25% 23.5 59% 187 40% 02/28/2025 21w 3d 49.6 31% 187.8 25% 160.2 33% 34 18% 31.5 17% 388 22% 03/27/2025 25w 2d 60.1 17% 227.4 13% 198.1 18% 43.1 9% 38.8 6% 689 11% 04/25/2025 29w 3d 71.7 19% 269.7 17% 243.5 21% 51.7 4% 46.2 4% 1216 11% 06/09/2025 35w 6d 82.7 4% 297.6 <1% 289.2 2% 61.9 <1% 53.6 <1% 2032 2% Anatomy The following structures appear normal: Abdomen Stomach. Kidneys. Bladder. sex: female. Doppler Umbilical Artery: normal PI 0.74 31% Thang S / D 2.09 27% Thang Mid Cerebral Artery: normal PI 1.45 10% Ebbing PS 59.73 cm/s PS 1.09 MoM CPR PI 1.96 26% Ebbing Impression ========= Single, live, intrauterine at 36w 3d The amniotic fluid volume is normal. The biophysical profile is 10/10. The umbilical artery Dopplers is normal. The MCA Dopplers is normal. Comment ======== ultrasound alone cannot detect all structural, genetic, or functional , placental, or maternal abnormalities Follow-up ======== Proceed with delivery at 37w0d as recommended last week. Coding ====== Diagnoses O28.5: Abnormal chromosomal and genetic finding on screening of mother O36.5930: Maternal care for other known or suspected poor growth Procedures 49053: [place] Uterus Limited 91979: Biophysical Profile W NST 20741: Umbilical Doppler 68441: MCA Doppler [facility] PACS Anatomical Region Laterality Modality Other 06/13/2025 7:43 AM CDT Rupa Ledezma MD [facility] ORDERABLES Edited Result - Final * Sonogram - Complete (06/09/2025 8:01 AM CDT) Only the most recent of2 resultswithin the time period is included. 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 Para 0 Lab Tests Test Date Result NIPT Declined Maternal Assessment Physical Exam Height 163 cm, 5 ft 4 in. Weight 77 kg, 170 lb. Initial weight 59 kg, 130 lb. BMI 29.18 kg/m . Initial BMI 22.31 kg/m . Weight gain 18 kg, 40 lb Method ====== Transabdominal ultrasound. View: Sufficient ========= [place]ing . Number of fetuses: 1 Dating ====== Date Details Gest. age CINDY LMP 09/11/2024 38 w + 5 d 06/18/2025 Stated CINDY 35 w + 6 d 07/08/2025 U/S 06/09/2025 based upon AC, BPD, Femur, HC 32 w + 6 d 07/29/2025 Assigned dating based on ultrasound (AC, BPD, Femur, HC), selected on 01/30/2025 35 w + 6 d 07/08/2025 General Evaluation Cardiac activity present. FHR 149 bpm. Presentation: cephalic Placenta: Placental site: posterior Amniotic fluid: Amount of AF: normal. MVP 5.0 cm. MASSIEL 16.3 cm. Q1 4.5 cm, Q2 5.0 cm, Q3 2.8 cm, Q4 4.0 cm Biometry BPD 82.7 mm 33w 2d 4% Hadlock HC 297.6 mm 33w 0d <1% Hadlock AC 289.2 mm 32w 6d 2% Hadlock Femur 61.9 mm 32w 1d <1% Hadlock Humerus 53.6 mm 31w 1d <1% Dayanara HC / AC 1.03 Weight Calculation: EFW 2,033 g 2% Hadlock EFW (lb,oz) 4 lb 8 oz EFW by Hadlock ([id number]) SGA Growth Overview Exam date GA BPD (mm) HC (mm) AC (mm) FL (mm) HL (mm) EFW (g) 01/30/2025 17w 2d 36.3 42% 138.2 36% 120 63% 22.5 25% 23.5 59% 187 40% 02/28/2025 21w 3d 49.6 31% 187.8 25% 160.2 33% 34 18% 31.5 17% 388 22% 03/27/2025 25w 2d 60.1 17% 227.4 13% 198.1 18% 43.1 9% 38.8 6% 689 11% 04/25/2025 29w 3d 71.7 19% 269.7 17% 243.5 21% 51.7 4% 46.2 4% 1216 11% 06/09/2025 35w 6d 82.7 4% 297.6 <1% 289.2 2% 61.9 <1% 53.6 <1% 2032 2% Anatomy The following structures appear normal: Abdomen Stomach. Kidneys. Bladder. sex: female. Biophysical Profile 2: breathing movements 2: Gross body movements 2: tone 2: Amniotic fluid volume NST: reactive 1010 Biophysical profile score Non Stress Test NST interpretation: reactive. Baseline FHR 135 bpm. Baseline variability: moderate. Accelerations: present Doppler Umbilical Artery: normal PI 0.80 44% Thang S / D 2.29 40% Thang Mid Cerebral Artery: normal PI 2.02 64% Ebbing PS 58.16 cm/s PS 1.09 MoM CPR PI 2.53 67% Ebbing Impression ========= Single, live intrauterine at 35w 6d The size is SGA/IUGR. The amniotic fluid volume is normal. The biophysical profile is 10/10. The umbilical artery Doppler is normal. The MCA Doppler is normal. Comment ======== U/S cannot detect all structural, genetic, or functional , placental, or maternal abnormalities Follow-up ======== Continue BPP & Dopplers 1x-weekly Continue NST 2x-weekly With EFW <3rd%, deliver at 37w0d Coding ====== Procedures [address]3532: [place] [address]: Biophysical Profile W NST 69651: Umbilical Doppler 78142: MCA Doppler [facility] PACS Anatomical Region Laterality Modality Other 06/09/2025 8:01 AM CDT Violette Harvey MD [facility] ORDERABLES Edited Resul t - Final from Last 3 Months Insurance Care Teams Curb Setter Helper Relationship Specialty Start Date End Date Unknown, Provider PCP - General 01/30/25
== END 2025-06-29 12:53 | disposition home or self-care (01) ==
PROVIDERS: Emergency Provider Emergency Medicine; PCP Nurse Practitioner Women's Health
DX: O99.893 Other specified diseases and conditions complicating puerperium (principal); M54.12 Radiculopathy, cervical region
CPT/HCPCS: 72040; 99283; A9270

== ENCOUNTER 2025-07-30 16:35 | Emergency (ER) | payer BC, SELFPAY ==
--- NOTE | 2025-07-30 16:45 | ED_ITS ---
HPI - General Adult General Chief complaint: Skin/Abscess/Foreign Body Stated complaint: Bodyaches Time Seen by Provider: 07/30/25 16:45 Source: patient Mode of arrival: ambulatory Limitations: no limitations History of Present Illness HPI narrative: 24-year-old female presents with complaint of pain, swelling to right breast. Patient is currently . Also use a breast pump. Patient states she has been attempting to use breast pump and nothing is coming from right breast. Patient reports chills, fatigue and body aches. Afebrile. pt's child approx. 1 month old. No hx of mastitis. All systems reviewed and negative except as noted above. Related Data Allergies Allergy/AdvReac Type Severity Reaction Status Date / Time No Known Allergies Allergy Verified 07/30/25 16:59 [facility] Past Medical History Medical History (Updated 07/30/25 @ 16:58 by Ju Agee NP) Healthy female adult Surgical History Surgical History (Updated 06/29/25 @ 18:10 by Keny Hernandez MD) No pertinent past surgical history Comments At time of signature, agree with nursing past medical, surgical, social and family history. There is no relevant family history pertinent to the presenting complaint. Exam Narrative: GENERAL: This is a well-nourished, well-developed patient, in no apparent distress. HEAD: normocephalic, atraumatic. EYES: PERRL. Sclera clear/white. Vision is grossly intact. EARS: External ears normal NOSE: External nose normal NECK: Neck supple, non-tender without lymphadenopathy, masses or thyromegaly. CARDIOVASCULAR: Regular rate and rhythm without murmurs, gallops, or rubs. RESPIRATORY: Clear to auscultation. Breath sounds equal bilaterally. No wheezes, rales, or rhonchi. BREAST: tenderness to upper and lower outer aspect of R breast. No erythema or warmth. firm on palpation. no fluctuance concerning for abscess. SKIN: warm, Dry, intact with no suspicious lesions or rash, good texture and turgor. NEURO: awake, alert, and oriented to person, place and time. There were no obvious focal neurologic abnormalities. EXTREMITIES: No joint tenderness, effusion, or edema noted. Course Course Level of Care: Express Care Visit Vital Signs Vital signs: Vital Signs Temperature 36.9 C 07/30/25 16:51 Pulse Rate 138 H 07/30/25 16:51 Respiratory Rate 16 07/30/25 16:51 Blood Pressure 117/86 07/30/25 16:51 Pulse Oximetry 100 07/30/25 16:51 Temperature 36.9 C 07/30/25 16:51 Pulse Rate 138 H 07/30/25 16:51 Respiratory Rate 16 07/30/25 16:51 Blood Pressure 117/86 07/30/25 16:51 Pulse Oximetry 100 07/30/25 16:51 Reviewed, HR 118 auscultated Medical Decision Making MDM Narrative Medical decision making narrative: pt most like has closed milk duct. recommend increased and then pumping til empty. recommend warm compress and massage. Tyenol for pain. afebrile. pt has chills, bodyaches. Will give abx as precaution, at risk for mastitis. Vital Signs Vital Signs: Vital Signs Temperature 36.9 C 07/30/25 16:51 Pulse Rate 138 H 07/30/25 16:51 Respiratory Rate 16 07/30/25 16:51 Blood Pressure 117/86 07/30/25 16:51 Pulse Oximetry 100 07/30/25 16:51 Temperature 36.9 C 07/30/25 16:51 Pulse Rate 138 H 07/30/25 16:51 Respiratory Rate 16 07/30/25 16:51 Blood Pressure 117/86 07/30/25 16:51 Pulse Oximetry 100 07/30/25 16:51 Discharge Plan Discharge Clinical Impression: Acute mastitis of right breast Patient Disposition: Home Condition: Stable Instructions: Antibiotic Form, Mastitis (ED) Additional Instructions: Breastfeed or pump 8 to 12 times a day for effective milk removal. Apply warm compress for 10 to 15 minutes and gently massage prior to breatfeedi ng/pumping. Drink at least 64 ounces of water a day. Take tylenol every 6 to 8 hours as needed for pain. Go to the ER for any worsening of symptoms. Patient Language: [place]ian Prescriptions: New dicloxacillin 500 mg capsule 500 mg PO QID 10 Days Qty: 40 0RF No Action ibuprofen 600 mg tablet 600 mg PO TID Qty: 20 0RF Follow-up/Referrals: PHYSICIAN,AIR TRAFFIC [employer]LLER [Primary Care Provider, Internal Medicine] Time of Disposition: 17:01
[2025-07-30 16:51] VITALS: BP 117/86; PULSE 138; RESP 16; TEMP 36.9; O2SAT 100
== END 2025-07-30 17:17 | disposition home or self-care (01) ==
PROVIDERS: Emergency Provider Nurse Practitioner Family
DX: O91.22 Nonpurulent mastitis associated with the puerperium (principal)
CPT/HCPCS: 99213; G0463